=== PATIENT | male | born 1965 | race Caucasian/White ===

== ENCOUNTER 2017-03-18 06:54 | Emergency (ER) | payer OTHER ==
[~2017-03-18] VITALS: Ht 175.3 cm; Wt 83.9 kg
[~2017-03-18 06:54] MED LIST: CELE20TA
[2017-03-18] MEDS ORDERED: MOTR200T44 PO (07:18)
[2017-03-18] MEDS ORDERED: PROMETHAZINE INJ 25 MG/ML VIAL (J2550) IV ONE (07:30)
[2017-03-18] MEDS ORDERED: MORPHINE 4 MG/ML 1ML SYRINGE IV ONE (07:30)
[2017-03-18] MEDS ORDERED: NS 500 ML IV ONE (07:30)
--- NOTE | 2017-03-18 09:05 | REP ---
CT Head without contrast HISTORY: Headache COMPARISON: 05/24/2015 There is no intraparenchymal hemorrhage, acute infarct, mass or midline shift. The ventricular system is normal in appearance. There is no extra cerebral collection. There is no fracture. Mucosal thickening is present in the ethmoid sinuses. IMPRESSION: There is no intracranial lesion. Signed by Oz Bustamante MD 03/18/2017 08:57 A
[2017-03-18] MEDS ORDERED: FIOR1CAP PO (09:29)
[2017-03-18] MEDS ORDERED: KETOROLAC 30 MG/ML VIAL (J1885) IV ONE (09:30)
[2017-03-18 11:00] VITALS: BP 121/75
== END 2017-03-18 11:04 | disposition home or self-care (01) ==
LOC: M ED 07:39
DX: G43.909 Migraine, unspecified, not intractable, without status migrainosus (principal); F17.210 Nicotine dependence, cigarettes, uncomplicated; F12.20 Cannabis dependence, uncomplicated
CPT/HCPCS: 70450; 96361; 96374; 96375; 99282; J1885

== ENCOUNTER 2017-08-27 15:09 | Emergency (ER) | payer OTHER ==
[~2017-08-27] VITALS: Ht 180.3 cm; Wt 95.5 kg
[~2017-08-27 15:09] MED LIST changes: +FIOR1CAP PO; +MOTR200T44 PO
[2017-08-27] MEDS ORDERED: MORPHINE 4 MG/ML 1ML SYRINGE IV ONE (16:00)
[2017-08-27] MEDS ORDERED: ONDANSETRON 4MG/2ML VIAL (J2405) IV ONE (16:00)
--- NOTE | 2017-08-27 16:40 | REP ---
CT Head without contrast HISTORY: Trauma COMPARISON: 03/18/2017 There is no intraparenchymal hemorrhage, acute infarct, mass or midline shift. The ventricular system is normal in appearance. There is no extra cerebral collection. There is no fracture. The visualized sinuses are clear. IMPRESSION: There is no intracranial lesion. Signed by Oz Bustamante MD 08/27/2017 04:32 P
--- NOTE | 2017-08-27 17:10 | REP ---
CT CERVICAL SPINE WITHOUT CONTRAST: HISTORY: Trauma. There is no acute fracture or subluxation. Disc bulges are present at the C2-3 and C3-4 levels. Disc bulges with associated osteophyte formation are present at the C4-5 through C6-7 levels. There is minimal narrowing of the spinal canal. Uncinate process and/or facet hypertrophy are present at the C3-4 through C7-T1 levels. These findings produce minimal to moderate narrowing of the neural foramina. The C4-5 through C6-7 intervertebral discs are decreased in height consistent with disc degeneration. IMPRESSION: 1. There is no acute fracture or subluxation. 2. There is cervical spondylosis at the C2-3 through C7-T1 levels. Signed by Oz Bustamante MD 08/27/2017 05:15 P
--- NOTE | 2017-08-27 17:40 | REP ---
LEFT ANKLE, FOUR VIEWS: HISTORY: Hip pain. There is no acute fracture or dislocation. The joint space is normal in appearance. Osteophytes are present on the medial malleolus. IMPRESSION: There is no acute fracture or dislocation. Signed by Oz Bustamante MD 08/27/2017 05:51 P
--- NOTE | 2017-08-27 17:41 | REP ---
RIGHT FEMUR, FOUR VIEWS: HISTORY: Hip pain. There is no acute fracture or dislocation. The joint spaces are normal in appearance. IMPRESSION: There is no acute fracture or dislocation. Signed by Oz Bustamante MD 08/27/2017 05:51 P
--- NOTE | 2017-08-27 17:42 | REP ---
RIGHT TIBIA AND FIBULA, FOUR VIEWS: HISTORY: Hip pain. There is no acute fracture or dislocation. The joint spaces are normal in appearance. IMPRESSION: There is no acute fracture or dislocation. Signed by Oz Bustamante MD 08/27/2017 05:51 P
--- NOTE | 2017-08-27 17:44 | REP ---
LUMBAR SPINE, FIVE VIEWS: HISTORY: Back pain. There is no acute fracture or subluxation. The intervertebral discs are decreased in height consistent with disc degeneration. There is narrowing of the L4-5 and L5-S1 facet joints. IMPRESSION: Degenerative change as described above. Signed by Oz Bustamante MD 08/27/2017 05:51 P
--- NOTE | 2017-08-27 17:45 | REP ---
THORACIC SPINE, THREE VIEWS: HISTORY: Back pain. There is no acute fracture or subluxation. There is loss of height of several lower thoracic intervertebral discs. Anterior osteophytes are present in the lower thoracic spine. IMPRESSION: Degenerative change as described above. Signed by Oz Bustamante MD 08/27/2017 05:51 P
--- NOTE | 2017-08-27 17:47 | REP ---
SACRUM AND COCCYX, THREE VIEWS: HISTORY: Back pain. There is no acute fracture or subluxation. The L4-5 and L5-S1 intervertebral discs are decreased in height consistent with disc degeneration. Osteophytes are present on L4 through S1. IMPRESSION: Degenerative change as described above. Signed by Oz Bustamante MD 08/27/2017 05:51 P
[2017-08-27 17:51] VITALS: BP 117/74
--- NOTE | 2017-08-27 18:13 | REP ---
BILATERAL FOOT, EIGHT VIEWS: HISTORY: Hip pain. RIGHT FOOT: There is no acute fracture or dislocation. The joint spaces are normal in appearance. IMPRESSION: There is no acute fracture or dislocation. LEFT FOOT: There is no acute fracture or dislocation. The joint spaces are normal in appearance. IMPRESSION: There is no acute fracture or dislocation. Signed by Oz Bustamante MD 08/27/2017 06:24 P
--- NOTE | 2017-08-27 18:54 | REP ---
PELVIS, ONE VIEW: HISTORY: Back pain. There is no acute fracture or dislocation. The joint spaces are normal in appearance. IMPRESSION: There is no acute fracture or dislocation. Signed by Oz Bustamante MD 08/27/2017 06:56 P
== END 2017-08-27 18:04 | disposition home or self-care (01) ==
LOC: M ED 15:09
DX: S90.512A Abrasion, left ankle, initial encounter (principal); S80.12XA Contusion of left lower leg, initial encounter; V13.4XXA Pedal cycle driver injured in collision with car, pick-up truck or van in traffic accident, initial encounter; Y92.410 Unspecified street and highway as the place of occurrence of the external cause; Y93.55 Activity, bike riding; Y99.8 Other external cause status; G43.909 Migraine, unspecified, not intractable, without status migrainosus
CPT/HCPCS: 70450; 72072; 72110; 72125; 72190; 72220; 73552; 73590; 73610; 73630; 96374; 96375; 99283; J2405

== ENCOUNTER 2018-07-31 22:21 | Inpatient (IN) | payer MEDICAID, OTHER ==
[2018-07-31 23:11] LABS: HEMOGLOBIN 15.4 g/dl (13.5-17.5); MEAN CORPUSCULAR HEMOGLOBIN 32.2 pg (27.0-33.0); MEAN CORPUSCULAR HGB CONC 35.8 g/dl (32.0-36.5); PLATELET COUNT, AUTOMATED 326 10^3/uL (150-450); RED BLOOD COUNT 4.78 10^6/uL (4.30-6.10); RED CELL DISTRIBUTION WIDTH 12.6 % (11.5-14.5); WHITE BLOOD COUNT 10.9 10^3/uL (4.0-10.0)
[2018-07-31 23:24] LABS: AMPHETAMINES LEVEL URINE POSITIVE (NEGATIVE); BARBITURATES URINE NEGATIVE (NEGATIVE); BENZODIAZEPINES URINE NEGATIVE (NEGATIVE); CANNABINOIDS URINE POSITIVE (NEGATIVE); COCAINE METABOLITE URINE NEGATIVE (NEGATIVE); METHADONE URINE NEGATIVE (NEGATIVE); OPIATES URINE POSITIVE (NEGATIVE); PHENCYCLIDINE URINE NEGATIVE (NEGATIVE)
[2018-07-31 23:38] LABS: ALBUMIN 3.9 GM/DL (3.2-5.2); ALBUMIN/GLOBULIN RATIO 1.34 (1.00-1.93); ALKALINE PHOSPHATASE 120 U/L (45-117); ALT/SGPT 23 U/L (12-78); ANION GAP 9 MEQ/L (8-16); AST/SGOT 24 U/L (7-37); BILIRUBIN,DIRECT < 0.1 MG/DL (0.0-0.2); BILIRUBIN,TOTAL 0.4 MG/DL (0.2-1.0); BLOOD UREA NITROGEN 13 MG/DL (7-18); CALCIUM LEVEL 8.9 MG/DL (8.5-10.1); CARBON DIOXIDE LEVEL 27 MEQ/L (21-32); CHLORIDE LEVEL 104 MEQ/L (98-107); CREATININE FOR GFR 1.06 MG/DL (0.70-1.30); ETHYL ALCOHOL (ETHANOL) < 0.003 % (0.000-0.010); GLOMERULAR FILTRATION RATE > 60.0 (>56); GLUCOSE, FASTING 110 MG/DL (70-100); POTASSIUM SERUM 3.8 MEQ/L (3.5-5.1); SALICYLATE LEVEL 2.9 MG/DL (5.0-30.0); SODIUM LEVEL 140 MEQ/L (136-145); TOTAL PROTEIN 6.8 GM/DL (6.4-8.2)
[2018-07-31 23:58] LABS: ACETAMINOPHEN LEVEL < 2.0 UG/ML (10.0-30.0)
[2018-08-01] MEDS ORDERED: MAALOX 30 ML SUSP *UDC PO (00:45)
[2018-08-01] MEDS ORDERED: MOM 30ML SUSPENSION UDC PO (00:45)
[2018-08-01] MEDS ORDERED: traZODone 50 MG TAB PO (00:45)
[2018-08-01] MEDS ORDERED: OLANZapine ORAL DISINTEGRATING TAB 5MG PO (13:45)
[2018-08-01] MEDS: ACETAMINOPHEN TAB 650MG DOSE (2X325MG) PO (14:14)
[2018-08-03] MEDS: ACETAMINOPHEN TAB 650MG DOSE (2X325MG) PO (10:23)
[2018-08-04] MEDS: ACETAMINOPHEN TAB 650MG DOSE (2X325MG) PO ×2 (11:43→22:58)
== END 2018-08-05 10:20 | disposition home or self-care (01) | DRG 754 ==
LOC: M ED INP 08-01 00:32 → M PSY 08-01 01:21 → M ED 22:21
DX: F32.9 Major depressive disorder, single episode, unspecified (principal); R45.851 Suicidal ideations; F15.10 Other stimulant abuse, uncomplicated; F12.10 Cannabis abuse, uncomplicated; F11.10 Opioid abuse, uncomplicated; F17.210 Nicotine dependence, cigarettes, uncomplicated; R51 Headache; M25.511 Pain in right shoulder; M79.621 Pain in right upper arm; M79.631 Pain in right forearm; M25.521 Pain in right elbow

== ENCOUNTER → 2019-04-12 | Outpatient (REF) | LOC: M LAB 16:21 ==